=== PATIENT | female | born 1995 | race Caucasian/White ===

== ENCOUNTER 2018-01-16 13:00 | Emergency (ER) | payer BC ==
--- OUTSIDE RECORDS SUMMARY | 2018-01-16 13:16 | XMS REPORT ---
:1995 External Reference #:[id number] Author Organization [facility] Address [address], [address] [place] [address] Phone [phone] Care Team Providers Name Role Phone David Hernandez PA Care Team Information Risk Adjustment Specialist Unavailable David Hernandez PA Primary Care Physician Unavailable Payers Type Date Identification Numbers Payment Provider Subscriber Commercial Policy Number: [id number] [facility] Phan PayID: [id number] [address] [address] [place] [address] Medicaid Expires: 2016 Policy Number: [id number] Medicaid Bouchra Phan PayID: [id number] [address] [place] [address] Problems Date Description Provider Status Onset: 01/12/2016 Anxiety state Adrianne Love, 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, 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, [employer]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 Social History Type Date Description Comments Marital Status Single ETOH Use Negative For Denies alcohol use Smoking Patient has never smoked Allergies, Adverse Reactions, Alerts Date Description Reaction Status Severity Comments 02/18/2015 NKDA active Medications Medication Date Status Form Strength Qnty SIG Indications Ordering Provider Nortriptyline / Active Capsules 25mg take one Unknown HCL 0000 capsule by mouth every day at bedtime Loestrin 04/08 01/11/ Hx Tablets 1-20mg-mcg 30tabs 1 tab by Z00.121 Ivan, (21) 2015 - mouth Adrianne, 12/27/ every PNP-BC, 2018 daily 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 Immunizations CPT Code Status Date Vaccine Lot # [id number] Given 05/19/2016 Varicella (Chicken Pox) Vaccine [id number] 88459 Given 05/19/2016 Gardasil [id number] 25979 Given 01/12/2016 Influenza Virus Vaccine Split Virus Use For [id number] Individual 3Yr Older 89546 Given 01/12/2016 Gardasil [id number] 71835 Given 01/12/2016 Hepatitis A Vaccine Pediatric/Adolescent Dosage 2 [id number] Dose Schedule [id number] Given 02/18/2015 Influenza Vaccine (Fluzone) Age 3 And Older [id number] 88466 Given 02/18/2015 Meningococcal Conjugate Vaccine Serogroups For [id number] Intramuscular Use 68248 Given 02/18/2015 Hepatitis A Vaccine Pediatric/Adolescent Dosage 2 [id number] Dose Schedule Q2038 Given 12/30/2009 Influenza Vaccine (Fluzone) Age 3 And Older 51079 Given 12/30/2009 Tdap injection [id number] Given 08/14/2002 DTaP,Unspecified 82228 Given 08/14/2002 Poliovirus Vaccine Subcutaneous Or Intramuscular 04690 Given 08/14/2002 MMR Vaccine, Live, For Subcutaneous Use 70330 Given 01/01/1999 Hib PRP-T Conjugate 4 Dose Schedule 90304 Given 01/01/1999 DTP Vaccine 28145 Given 10/02/1998 Varicella (Chicken Pox) Vaccine 46247 Given 10/02/1998 Poliovirus Vaccine Subcutaneous Or Intramuscular 01819 Given 10/02/1998 MMR Vaccine, Live, For Subcutaneous Use 93181 Given 04/03/1998 Hepatitis B Vaccine Pediatric/Adolescent 51552 Given 04/03/1998 DTP Vaccine 58275 Given 04/03/1998 Hib PRP-T Conjugate 4 Dose Schedule 94061 Given 01/02/1998 Poliovirus Vaccine Subcutaneous Or Intramuscular 26811 Given 01/02/1998 DTP Vaccine 33199 Given 01/02/1998 Hib PRP-T Conjugate 4 Dose Schedule 23313 Given 1997 Poliovirus Vaccine Subcutaneous Or Intramuscular 87148 Given 1997 DTP Vaccine 96305 Given 1997 Hib PRP-T Conjugate 4 Dose Schedule 26293 Given 1997 Hepatitis B Vaccine Pediatric/Adolescent 14371 Given 1997 Hepatitis B Vaccine Pediatric/Adolescent Vital Signs Date Vital Result Comment 05/19/2016 BP Systolic Lying Down Resting Right Arm 104 mmHg BP Diastolic Lying Down Resting Right Arm 62 mmHg Body Temperature 98.1 F Heart Rate 78 /min Respiratory Rate 18 /min Height 66 inches 5'6" Weight 91.00 lb BMI (Body Mass Index) 14.7 kg/m2 BSA (Body Surface Area) 1.43 m2 Height Percentile 75 % Weight Percentile <3rd Last Menstrual Period 1402308 O2 % BldC Oximetry 99 % 01/12/2016 BP Systolic Sitting Left Arm 104 mmHg BP Diastolic Sitting Left Arm 60 mmHg Body Temperature 98.8 F Heart Rate 60 /min Respiratory Rate 16 /min Height 66 inches 5'6" Weight 92.25 lb BMI (Body Mass Index) 14.9 kg/m2 BSA (Body Surface Area) 1.44 m2 Unity body weight in kilograms 59 Height Percentile 76 % Weight Percentile <3rd Last Menstrual Period 7130195 10/20/2015 BP Systolic Sitting Left Arm 106 mmHg BP Diastolic Sitting Left Arm 58 mmHg Height 65 inches 5'5" Weight 94.25 lb BMI (Body Mass Index) 15.7 kg/m2 BSA (Body Surface Area) 1.44 m2 Height Percentile 62 % Weight Percentile <3rd Last Menstrual Period [id number] 06/16/2015 BP Systolic 106 mmHg BP Diastolic 60 mmHg Body Temperature 98.2 F Height 65 inches 5'5" Weight 91.00 lb BMI (Body Mass Index) 15.1 kg/m2 BSA (Body Surface Area) 1.42 m2 Height Percentile 62 % Weight Percentile <3rd Last Menstrual Period [id number] 02/18/2015 BP Systolic 100 mmHg BP Diastolic 62 mmHg Height 64.6 inches 5'4.60" Weight 89.00 lb BMI (Body Mass Index) 15.0 kg/m2 BSA (Body Surface Area) 1.40 m2 Height Percentile 57 % Weight Percentile <3rd Last Menstrual Period [id number] Results Test Date Test Result H/L Range Note Urine Culture 06/16/2015 Urine Culture See Note 1 Chlamydia/GC Saige, 06/16/2015 Chlamydia Trachomatis,Ur Negative Negative Urine -Saige Neisseria Gonorrhoeae,Ur -Saige Negative Negative 2 Laboratory test finding 02/18/2015 Urine Culture See Note 3, 4 Antibody Detection See Note 5 Hepatitis C Antibody 02/18/2015 Hepatitis C Antibody Nonreactive Nonreactive Signal/Cutoff ratio < 0.02 <0.80 6 Laboratory test finding 02/18/2015 Treponema Antibody Nonreactive Nonreactive 7 [place] 1 Organism 1 ! URETHRAL BUSTER Quantity ! 10,000 - 50,000 CFU/mL 2 A negative result for either C. trachomatis and/or N. gonorrhoeae does not preclued an infection because results are dependent on adequate specimen collection, absence of inhibitors, and sufficient DNA to be detected. 3 Organism 1 ! ESCHERICHIA COLI Quantity ! > 100,000 CFU/mL ESCHERICHIA COLI Target Route Dose M.I.C. RX AB COST ------ ----- -------- ------ -- ------ NITROFURANTOIN <=16 S TRIMETHOPRIM/SULFAMETHOXAZOLE <=20 S AMPICILLIN 8 S CEFAZOLIN <=4 S AMPICILLIN/SULBACTAM 4 S CIPROFLOXACIN <=0.25 S PIPERACILLIN/TAZOBACTAM <=4 S CEFTAZIDIME <=1 S CEFTRIAXONE <=1 S CEFEPIME <=1 S LEVOFLOXACIN <=0.12 S IMIPENEM <=0.25 S GENTAMICIN <=1 S TOBRAMYCIN <=1 S 4 02/20/15 (MonFeb 20) 01:06 PM HARIS MARIMAR will treat with bactrim DS biD x 3 days 02/20/15 (MonFeb 20) 01:08 PM HARIS MARIMAR Discussed with mom and has problems swallowing pills. Will treat with macrobid BID x 7 days 5 No reportable results 6 Antibodies to HCV not detected; does not exclude early acute HCV infection. 7 Please Note: A nonreactive test result does not exclude the possibility of exposure to, or infection with syphilis. T. pallidum antibodies may be undetectable in some stages of the infection and in some clinical conditions. Procedures Date CPT Code Description Status 12/27/2017 73782 Eye Exam New Patient Comprehensive Completed 01/12/2016 14296 Visual Screening Test Of Visual Acuity, Quantitative, Completed Bilateral 01/12/2016 54131 Theraputic Or Diagnostic Injection Completed 11/24/2015 86080 Theraputic Or Diagnostic Injection Completed Encounters Type Date Location Provider CPT E/M Dx Office Visit 05/19/2016 9:45a [facility] Haris Bagley M.D. 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 36655 Z11.1 Office Visit 10/20/2015 10:30a [facility] Haris Pruitt M.D. 85752 F41.9 N94.6 Office Visit 06/16/2015 2:30p [facility] Haris Pruitt M.D. 34401 R35.0 N94.1 Office Visit 02/18/2015 1:15p [facility] Haris Pruitt M.D. 71652 Z00.121 R35.0 Z23 Plan of Care 12/27/2017 - Mendoza Evans, MDR51 HeadacheComments:- no sign of optic neuropathy or cranial neuropathy- no sign of intraocular inflammation or infection- no sign of angle closure glaucoma; angle open on gonioscopy- no ophthalmic signs of increased intracranial pressure- provided reassuranceFollow up:please call with ? or concerns
[2018-01-16 13:24] VITALS: BP 120/75
[2018-01-16] MEDS ORDERED: Metoclopramide IV* 5 MG/ML 2 ML VIAL IV SLOW PU ONE (14:04)
--- NOTE | 2018-01-16 14:04 | UC ---
Headache HPI - HPI Summary HPI Summary: pt is c/o a frontal into temporal regions throbbing headache for 3 months. not an abrupt or worst headache. no hx of injury or illness. was able to get brief relief from an asa-caffeine powder but that not longer works. pt saw her pcp for this and had a negative ct (01/04) plus unremarkable eye exam. also tested for allergies. her pcp tx with topiramate x 1 week but that was stopped due to side effects. she is now taking nortriptyline which is not helping. no fever. is light and noise sensitive. headaches worsen with bright light, reading and exertion. also bending forward. mother has hx of headaches. no fmh of aneurysms. family is fine, no concern for CO poisoning. current VALLE is 2-3/10 wonders if she can get tx/relief while here. - History Of Current Complaint Chief Complaint: UCHeadache Stated Complaint: HEADACHE DIZZINESS NAUSEA Time Seen by Provider: 01/16/18 13:37 Hx Obtained From: Patient, Family/Hand Rounder Hx Last Menstrual Period: 12/12/17 Pain Intensity: 5 Timing: Constant Associated Signs And Symptoms: Positive: Dizziness. Negative: Nausea, Vomiting , Fever, Neck Pain, Neck Stiffness, Decreased LOC, Visual Changes - Risk Factors SAH Risk Factors: Negative Meningitis Risk Factors: Negative SDH Risk Factors: Negative Temporal Arteritis Risk Factors: Negative - Allergies/Home Medications Allergies/Adverse Reactions: Allergies Allergy/AdvReac Type Severity Reaction Status Date / Time No Known Allergies Allergy Verified 01/16/18 13:15 Home Medications: Home Medications Nortriptyline CAP* [Pamelor CAP*] 25 mg PO BEDTIME 01/16/18 [History Confirmed 01/16/18] PMH/Surg Hx/FS Hx/Imm Hx Neurological History: Other - Headaches Other Neurological History: headaches - Surgical History Surgical History: None - Family History Known Family History: Positive: Diabetes, Other - CA, mother has headaches - Social History Occupation: Employed Full-time Lives: With Family Alcohol Use: None Substance Use Type: None Smoking Status (MU): Never Smoked Tobacco - Immunization History Vaccination Up to Date: Yes Review of Systems Constitutional: Negative Skin: Negative Eyes: Negative ENT: Negative Respiratory: Negative Cardiovascular: Negative Gastrointestinal: Negative Genitourinary: Negative Motor: Negative Neurovascular: Negative Musculoskeletal: Negative Neurological: Headache Psychological: Negative Is Patient Immunocompromised?: No All Other Systems Reviewed And Are Negative: Yes Physical Exam Triage Information Reviewed: Yes Appearance: Well-Appearing Vital Signs: Initial Vital Signs Temp 98.8 F 01/16/18 13:17 Pulse 103 01/16/18 13:17 Resp 16 01/16/18 13:17 BP 120/75 01/16/18 13:17 Pulse Ox 100 01/16/18 13:17 Vital Signs Reviewed: Yes Eyes: Positive: Conjunctiva Clear, Other: - PERRL, EOMI. ENT: Positive: Pharynx normal, TMs normal. Negative: Nasal congestion, Nasal drainage, Sinus tenderness Neck: Positive: Supple, Nontender, No Lymphadenopathy. Negative: Nuchal Rigidity Respiratory: Positive: Lungs clear, Normal breath sounds Cardiovascular: Positive: RRR, No Murmur Abdomen Description: Positive: Nontender, No Organomegaly, Soft Bowel Sounds: Positive: Present Musculoskeletal: Positive: ROM Intact Neurological: Positive: Other: - A&O x3. CN 2-12 grossly intact. 5/5 strength and 2+ reflexes x4. sensation intact x4. Normal gait. negative rhomberg and pronator drift. heel toe walks with ease. Psychological: Positive: Normal Response To Family, Age Appropriate Behavior Skin Exam: Normal Re-Evaluation - Re-Evaluation First Eval Re-Evaluation Time: 15:15 Change: Improved - pt notes VALLE is improving. taking po fluids and crackers Second Eval Re-Evaluation Time: 15:39 Change: Improved - feeling well enough to go home. Headache Course/Dx - Course Course Of Treatment: not an abrupt or worst headache, no fever plus had an unremarkable ct brain 01/04. no concern for intracranial bleed or mass or meningitis. improving here with tx. will refer to neurology since failing mutile forms of headache tx. - Differential Dx/Diagnosis Provider Diagnoses: Intractable headache Discharge - Sign-Out/Discharge Documenting (check all that apply): Patient Departure All imaging exams completed and their final reports reviewed: No Studies - Discharge Plan Condition: Improved Disposition: HOME Patient Education Materials: General Headache (ED) Forms: *Work Release Referrals: [facility] [Provider Group] - As Soon As Possible Additional Instructions: GO TO THE ER FOR ANY WORSENING. - Billing Disposition and Condition Condition: IMPROVED Disposition: Home
[2018-01-16] MEDS ORDERED: Ketorolac INJ* 30 MG/ML 1 ML VIAL IV PUSH ONE (14:06)
[2018-01-16] MEDS: NS 0.9% 1000 ML* 1,000 ML IV ONE ×2 (14:28→15:11)
[2018-01-16] MEDS: diPHENhydraMINE IV* 50 MG/ML 1 ml VIAL (BENADRYL) IV ONE ×2 (14:40→15:10)
== END 2018-01-16 15:48 | disposition home or self-care (01) ==
LOC: UCCORT 13:00
DX: R51 Headache (principal)
CPT/HCPCS: 96361; 96375; 96376; 99211; G0463; J1200; J1885; J2765